=== PATIENT | female | born 1975 | race Caucasian/White ===

== ENCOUNTER 2016-12-14 12:53 | Emergency (ER) | payer MEDICARE, OTHER ==
--- NOTE | ~2016-12-14 | CT2 ---
[facility] A Service of [facility] RADIOLOGY TEXT RESULTS PATIENT: JORDON LOUIE LOCATION: [facility] : 73 UNIT #: [id number] AGE: [address]: Jack Bolaños MD SEX: F ORDER DR: [id number] [facility] [address] [place], [place] [address] [id number] E MR#: [id number] #: [id number] NAME: JORDON LOUIE : 1975 SEX: F STUDY DATE/TIME: 12/14/2016 14:34 UNIT: TAYA ROOM: STUDY DESCRIPTION: CT Abd and Pelv W Cont Attending Physician: Jack Bolaños Ordering Physician: Ed Doctor [id number] [facility] Primary Care Physician: Emerita Lee A.P.R.N. MEDICAL IMAGING REPORT This report is preliminary unless electronic signature is present EXAM CT abdomen and pelvis with contrast INDICATIONS Diarrhea with generalized abdominal pain for the past month. PROCEDURE Contrast-enhanced CT of the abdomen and pelvis. 100 mL of Isovue-370. COMPARISON None. This CT exam was performed with one or more of the following radiation dose reduction techniques: automatic exposure control, adjustment of mA and/or kV according to patient size, and iterative reconstruction. FINDINGS Included lung bases clear. Abdomen with contrast: Small pericardial effusion. Hepatosplenomegaly. Liver measures 24 cm. Spleen measures 18.3 cm. Hepatic steatosis. Kidneys, adrenal glands, pancreas unremarkable. Previous cholecystectomy. Patient is status post subtotal colectomy. The bowel loops are nondilated. There is no abdominal fluid collection. There is nonspecific stranding in the subcutaneous fat of the mid abdomen. No drainable fluid collection. Pelvis with contrast: Previous hysterectomy. No aggressive appearing bone lesion. IMPRESSION 1. Nonspecific stranding in the subcutaneous fat in the mid abdomen. [facility] A Service [facility] RADIOLOGY TEXT RESULTS PATIENT: JORDON LOUIE LOCATION: [facility] : 73 UNIT #: [id number] AGE: [address]: Jack Bolaños MD SEX: F ORDER DR: 2. Significant hepatosplenomegaly with hepatic steatosis. 3. Pericardial effusion. Dictated by... Doug Ashford M.D. THIS IS AN ELECTRONICALLY VERIFIED REPORT Doug Ashford M.D. at 12/17/2016 7:01 AM Gisselle TD: 12/15/2016 07:12 JOB #: [id number] MEDICAL IMAGING REPORT COPY
[2016-12-14 13:27] LABS: URINE SOURCE CLEAN CATCH
[2016-12-14 13:34] LABS: URINE APPEARANCE CLEAR; URINE BILIRUBIN NEG (NEG); URINE BLOOD NEG (NEG); URINE COLOR YELLOW; URINE GLUCOSE NEG (NEG); URINE KETONE NEG (NEG); URINE LEUKOCYTE ESTERASE NEG (NEG); URINE NITRATE NEG (NEG); URINE PH 5.5 (5-8); URINE PROTEIN TRACE (NEG); URINE SPECIFIC GRAVITY 1.008 (1.003-1.035); URINE UROBILINOGEN 0.2 MG/DL (NEG)
[2016-12-14 13:41] LABS: CULTURE INDICATED? NO
[2016-12-14 13:44] LABS: BASOPHIL% 0.1 % (0-2.5); EOSINOPHIL% 0.3 % (0.0-7.0); HEMATOCRIT 39.3 % (35.0-45.0); HEMOGLOBIN 13.1 gm/dL (12.0-16.0); LYMPHOCYTE# 2.4 X10e3 (1.0-3.5); MEAN CELL VOLUME 88.9 FL (83-96); MEAN CORPUSCULAR HEMOGLOBIN 29.6 PG (28-34); MEAN CORPUSCULAR HGB CONC 33.3 g/dL (30-36); MEAN PLATELET VOLUME 9.2 FL (6.5-11.5); MONOCYTE# 0.4 X10e3 (0-1.0); MONOCYTE% 4.6 % (3.0-12.0); NEUTROPHIL# 5.4 X10e3 (1.5-7.1); PLATELET COUNT 74 X10e3 (140-420); RED BLOOD COUNT 4.42 X10e (3.90-5.30); RED CELL DISTRIBUTION WIDTH 13.6 % (11.0-15.5); WHITE BLOOD COUNT 8.1 X10e3 (4.0-10.5)
[2016-12-14 13:47] LABS: DIFF IND YES
[2016-12-14 13:59] LABS: ALBUMIN SERUM 3.9 g/dL (3.5-5.0); ALKALINE PHOSPHATASE 95 U/L (32-92); ALT (SGPT) 23 U/L (10-40); AMYLASE 8 U/L (0-46); AST (SGOT) 31 U/L (10-42); BILIRUBIN, DIRECT 0.1 mg/dL (0.0-0.2); BILIRUBIN,INDIRECT 0.6 mg/dL (0.0-0.9); BILIRUBIN,TOTAL 0.7 mg/dL (0.2-2.0); BLOOD UREA NITROGEN 7 mg/dL (9-23); BUN/CREATININE RATIO 7.77; CALCIUM SERUM 9.9 mg/dL (8.4-10.2); CARBON DIOXIDE 25 mmol/L (22-31); CHLORIDE 98 mmol/L (100-111); CREATININE SERUM 0.9 mg/dL (0.6-1.4); GLOM FILT RATE Estimated ABOVE60 mL/min (>60); GLUCOSE FASTING 157 mg/dL (70-110); LIPASE 19 U/L (22-51); POTASSIUM 3.5 mmol/L (3.5-5.1); PROTEIN TOTAL SERUM 7.1 g/dL (6.0-8.3); SODIUM 132 mmol/L (135-145)
[2016-12-14 15:13] LABS: PLATELET ESTIMATE DECREASED (NORMAL)
[2016-12-14 15:14] LABS: ANISOCYTOSIS SL
[2016-12-20] MEDS ORDERED: ADDERALL20 M1 PO (09:30)
[2016-12-20] MEDS ORDERED: TRICOR134 MG PO (09:31)
[2016-12-20] MEDS ORDERED: AMITRYPTYLINE PO (09:31)
[2016-12-20] MEDS ORDERED: LEXAPRO PO (09:32)
[2016-12-20] MEDS ORDERED: LITHIUM PO (09:32)
[2016-12-20] MEDS ORDERED: LAMICTAL PO (09:33)
[2016-12-20] MEDS ORDERED: METFORMIN PO (09:33)
[2016-12-20] MEDS ORDERED: LEVEMIR100 UNITS/ SUBQ (09:34)
[2016-12-20] MEDS ORDERED: NOVOLOG100 U/ML SUBQ (09:34)
[2016-12-20] MEDS ORDERED: NORVASC PO (09:35)
[2016-12-20] MEDS ORDERED: MINIPRESS PO (09:35)
[2016-12-20] MEDS ORDERED: CIPRO PO (09:36)
[2016-12-20] MEDS ORDERED: FLAGYL PO (09:37)
[2016-12-20] MEDS ORDERED: RISPERIDONE PO (09:39)
== END 2016-12-14 16:40 | disposition home or self-care (01) ==
LOC: CED 12:53
PROVIDERS: Emergency Medicine
DX: R10.84 Generalized abdominal pain (principal); R19.7 Diarrhea, unspecified; I31.3 Pericardial effusion (noninflammatory); E11.9 Type 2 diabetes mellitus without complications; F17.210 Nicotine dependence, cigarettes, uncomplicated; Z88.2 Allergy status to sulfonamides; Z88.1 Allergy status to other antibiotic agents
CPT/HCPCS: 36415; 74177; 80048; 80076; 81003; 82150; 83690; 85025; 86308; 99284; Q9967

== ENCOUNTER 2016-12-20 10:16 | Emergency (ER) | payer MEDICARE, OTHER ==
[~2016-12-20 10:16] MED LIST: ADDERALL20 M1 PO; AMITRYPTYLINE PO; CIPRO PO; FLAGYL PO; LAMICTAL PO; LEVEMIR100 UNITS/ SUBQ; LEXAPRO PO; LITHIUM PO; METFORMIN PO; MINIPRESS PO; NORVASC PO; NOVOLOG100 U/ML SUBQ; RISPERIDONE PO; TRICOR134 MG PO
== END 2016-12-20 10:43 | disposition home or self-care (01) ==
LOC: SED 10:16
DX: L85.3 Xerosis cutis (principal); E10.9 Type 1 diabetes mellitus without complications; Z79.4 Long term (current) use of insulin; Z90.49 Acquired absence of other specified parts of digestive tract; F31.9 Bipolar disorder, unspecified; Z90.710 Acquired absence of both cervix and uterus; F17.210 Nicotine dependence, cigarettes, uncomplicated
CPT/HCPCS: 99282